=== PATIENT | male | born 1970 | race Caucasian/White ===

== ENCOUNTER 2018-08-21 08:47 | Emergency (ER) ==
[2018-08-21 08:56] VITALS: BP 175/116; TEMP 98.9; BMI 40.8
[2018-08-21] MEDS ORDERED: TORADOL IM STA (10:11)
--- NOTE | 2018-08-21 10:57 | DI ---
EXAM: Radiographs, chest and right rib HISTORY: Right-sided chest pain, lateral rib pain following sneezing. COMPARISON: Chest radiograph 10/28/2016. TECHNIQUE: Four views. FINDINGS: Heart size is normal. There is no vascular congestion. Lungs are clear without pleural e ffusion or pneumothorax. No right rib fracture or other acute osseous abnormality identified. Small spherical metallic foreign object is seen over the left shoulder. Right upper quadrant CHF. Vehicl e clips are present. IMPRESSION: No acute abnormality of the chest.
--- NOTE | 2018-08-21 11:28 | ED.PDOC ---
General ED Provider: Dr. NANCY MALDONADO Chief Complaint: Back Pain Stated Complaint: RT Rib pain. Sneezed yesterday and felt popping sensation. Now having moderate pain rt lat ribs Time Seen by Physician: 09:20 Mode of Arrival: Walk-In Information Source: Patient Exam Limitations: No limitations Primary Care Provider: UMU SCHAEFER Nursing and Triage Documentation Reviewed and Agree: Yes Does patient meet sepsis criteria?: No System Inflammatory Response Syndrome: Not Applicable Sepsis Protocol: For patient's 13 years and over: Temp is 96.8 and below OR 101 and greater Pulse >90 BPM Resp >20/minute Acutely Altered Mental Status Are patient's symptoms suggestive of a new infection, such as: -Pneumonia -Skin, Soft Tissue -Endocarditis -UTI -Bone, Joint Infection -Implantable Device -Acute Abdominal Infection -Wound Infection -Meningitis -Blood Stream Catheter Infection -Unknown Musculoskeletal Complaint Exam - Back Pain Complaint/Exam Mechanism of Injury: Reports: Trauma (Sneezed and felt rib pop) Symptoms Are: Still present Timing: Intermittent Episodes Lasting: Hours Initial Severity: Moderate Current Severity: Moderate Location: Reports: Discrete Character: Reports: Sharp, Aching Aggravating: Reports: Movements Alleviating: Reports: Rest Associated Signs and Symptoms: Denies: Swelling, Redness, Bruising, Fever, Weakness, Numbness, Tingling, Abdominal pain, Flank pain, Bladder incontinence, Bowel incontinence, Weight loss, Pain with weight bearing Related History: Denies: Similar episode TAD Risk Factors: Reports: None AAA Risk Factors: Reports: None Cauda Equina Risk Factors: Reports: None Epidural Abcess Risk Factors: Reports: None Related Surgical History: Reports: None Focal Tenderness: Yes Paraspinal Muscle Tenderness: Yes Paraspinal Muscle Spasm: No Scoliosis: No Lordosis: No Kyphosis: No SLR Test: Right Negative, Left Negative Hip Motion Testing Pain: Right Negative, Left Negative Focal Weakness: Present: None Focal Sensory Loss: Present: None Gait: Present: Normal Differential Diagnoses: Strain, Other (Rib strain and poss fracture) Review of Systems - Review Of Systems Constitutional: Reports: No symptoms Eyes: Reports: No symptoms Ears, Nose, Mouth, Throat: Reports: No symptoms Respiratory: Reports: No symptoms Cardiac: Reports: No symptoms GI: Reports: No symptoms : Reports: No symptoms Musculoskeletal: Reports: Back pain Skin: Reports: No symptoms Neurological: Reports: No symptoms Endocrine: Reports: No symptoms Hematologic/Lymphatic: Reports: No symptoms All Other Systems: Reviewed and Negative Past Medical History - Past Medical History Previously Healthy: Yes Endocrine: Reports: None Cardiovascular: Reports: None Respiratory: Reports: None Hematological: Reports: None Gastrointestinal: Reports: None Genitourinary: Reports: None Neuro/Psych: Reports: None Musculoskeletal: Reports: None Cancer: Reports: None - Surgical History General Surgical History: Reports: None - Family History Family History: Reports: None - Social History Smoking Status: Current every day smoker, Light tobacco smoker Hx Substance Use: No Alcohol Screening: Occasionally Physical Exam - Physical Exam Appearance: Well-appearing, No pain distress, Well-nourished Eyes: SANDRA, EOMI, Conjunctiva clear ENT: Ears normal, Nose normal, Oropharynx normal Respiratory: Airway patent, Breath sounds clear, Breath sounds equal, Respirations nonlabored Cardiovascular: RRR, Pulses normal, No rub, No murmur GI/: Soft, Nontender, No masses, Bowel sounds normal, No Organomegaly Musculoskeletal: Normal strength (Low back tenderness), ROM intact, No edema, No calf tenderness Skin: Warm, Dry, Normal color Neurological: Sensation intact, Motor intact, Reflexes intact, Cranial nerves intact, Alert, Oriented Psychiatric: Affect appropriate, Mood appropriate Critical Care Note - Critical Care Note Total Time (mins): 0 Course - Course Orders, Labs, Meds: Orders Category Date Time Status Ketorolac Tromethamine [Toradol] MEDS 08/21/18 10:11 Discontinued 30 mg IM ONCE STA RIB, W/PA CHEST RIGHT Stat RADS 08/21/18 10:14 Completed Medications Discontinued Medications Generic Name Dose Route Start Last Admin Trade Name Sally PRN Reason Stop Dose Admin Ketorolac Tromethamine 30 mg 08/21/18 10:11 08/21/18 10:33 Toradol IM 08/21/18 10:12 30 mg ONCE STA Administration Vital Signs: Temp Pulse Resp BP Pulse Ox 08/21/18 08:48 98.9 F 84 20 175/116 H 97 Departure - Departure Time of Disposition: 11:30 Disposition: HOME SELF-CARE Discharge Problem: Intercostal muscle strain Instructions: Chest Pain (ED), Thoracic Pain (ED) Condition: Good Pt referred to PMD for follow-up: Yes (1 WEEK) IPMP verified?: No Additional Instructions: Apply ice to area of discomfort. Rib support as needed Take meds for pain control as needed Prescriptions: Ketorolac Tromethamine [Toradol] 10 mg PO Q6H PRN #20 tablet PRN Reason: chest wall pain Ketorolac Tromethamine [Toradol] 10 mg PO Q6H PRN #20 tablet PRN Reason: Pain relief Allergies/Adverse Reactions: Allergies No Known Allergies Allergy (Verified 08/21/18 08:57) Home Medications: Ambulatory Orders Ketorolac Tromethamine [Toradol] 10 mg PO Q6H PRN #20 tablet 08/21/18 Ketorolac Tromethamine [Toradol] 10 mg PO Q6H PRN #20 tablet 08/21/18 Disposition Discussed With: Patient
== END 2018-08-21 11:51 | disposition home or self-care (01) ==
LOC: ED 08:47
DX: S29.019A Strain of muscle and tendon of unspecified wall of thorax, initial encounter (principal); F17.210 Nicotine dependence, cigarettes, uncomplicated
CPT/HCPCS: 96372; 99283